=== PATIENT | female | born 1975 | race Caucasian/White ===

== ENCOUNTER → 2020-01-26 | Emergency (ER) | payer OTHER ==
[~2020-01-26] VITALS: Ht 175.3 cm; Wt 120.2 kg
[~2020-01-26] MED LIST: NORCO 7.5-3251 EACH PO; ONDANSETRON ODT8 MG PO
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
== END ==
LOC: ED 14:54
DX: R10.31 Right lower quadrant pain (principal); F17.200 Nicotine dependence, unspecified, uncomplicated; Z88.6 Allergy status to analgesic agent; Z88.8 Allergy status to other drugs, medicaments and biological substances
CPT/HCPCS: 74177; 76830; 76856; 80053; 81001; 83690; 84703; 85025; 96375; 96376; 99284-25; A9270; J1170; J2405; J7030; Q9967

== ENCOUNTER 2020-11-23 09:08 | Emergency (ER) | payer OTHER ==
[~2020-11-23] VITALS: Ht 175.3 cm; Wt 120.2 kg
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
[2020-11-23] MEDS ORDERED: GABAPENTIN300 MG PO (09:24)
[2020-11-23] MEDS ORDERED: GABAPENTIN100 MG PO (09:24)
[2020-11-23] MEDS ORDERED: CYCLOBENZAPRINE10 MG PO (09:25)
[2020-11-23] MEDS ORDERED: ONDANSETRON ODT8 MG PO (11:34)
[2020-11-23] MEDS ORDERED: DICYCLOMINE HCL20 MG PO (11:35)
== END 2020-11-23 11:51 | disposition home or self-care (01) ==
LOC: ED 09:08
DX: K52.9 Noninfective gastroenteritis and colitis, unspecified (principal); F17.200 Nicotine dependence, unspecified, uncomplicated; Z88.8 Allergy status to other drugs, medicaments and biological substances; Z88.6 Allergy status to analgesic agent; Z79.899 Other long term (current) drug therapy
CPT/HCPCS: 80053; 81001; 83690; 85025; 96374; 96375; 99284-25; J2405; J7030

== ENCOUNTER 2021-09-26 07:25 | Emergency (ER) | payer OTHER ==
[~2021-09-26] VITALS: Ht 175.3 cm; Wt 120.2 kg
[~2021-09-26 07:25] MED LIST changes: +CYCLOBENZAPRINE10 MG PO; +DICYCLOMINE HCL20 MG PO; +GABAPENTIN100 MG PO; +GABAPENTIN300 MG PO
--- OUTSIDE RECORDS SUMMARY | 2021-09-26 07:28 | XMS ---
PreManage Notification: FLIP COPELAND Security Brand Leader Events No recent Security Events currently on file CRITERIA MET - [facility] CARE PROVIDERS RADHA JOVANI Community Health Worker 02/13/2021-Current PHONE: [phone] FARHEEN RAMOS Physician Branch Manager Current PHONE: Unknown Vikram has no Care Guidelines for this patient. Care History Medical/Surgical 11/24/2020 [facility] Care Recommendation: - PLEASE REVIEW PDMP - VIKRAM - USE EXTREME CAUTION IN GIVING NARCOTICS. - Avoid Discharge Narcotic prescriptions if at all possible. Physician discretion. E.D. VISIT COUNT (12 MO.) [facility] TOTAL 7 NOTE: Visits indicate total known visits. ED/UCC VISIT TRACKING (12 MO.) 09/26/2021 07:26 [facility] Opal Willis [place] TYPE: Emergency COMPLAINT: - SOB, HEADACHE, COUGH, SORE THROAT 06/17/2021 08:15 [facility] OR TYPE: Emergency DIAGNOSES: - BACK PAIN - Low back pain, unspecified 05/06/2021 10:56 [facility] OR TYPE: Emergency DIAGNOSES: - Trochanteric bursitis, right hip - R HIP PAIN 02/25/2021 10:23 [facility] OR TYPE: Emergency DIAGNOSES: - Hidradenitis suppurativa - ABCESS 02/12/2021 10:07 [facility] [place] TYPE: Emergency DIAGNOSES: - BACK PAIN - Lumbago with sciatica, right side 11/27/2020 09:39 [facility] [place] TYPE: Emergency DIAGNOSES: - Noninfective gastroenteritis and colitis, unspecified - COVID TESTING - Contact with and (suspected) exposure to covid-19 11/23/2020 09:[address] [facility] [place] TYPE: Emergency COMPLAINT: - ABD PAIN DIAGNOSES: - Nicotine dependence, unspecified, uncomplicated - Right upper quadrant pain - Allergy status to other drugs, medicaments and biological substances - Allergy status to analgesic agent - Noninfective gastroenteritis and colitis, unspecified - Other senior care (current) drug therapy INPATIENT VISIT TRACKING (12 MO.) No inpatient visits to display in this time frame [id number]
[2021-09-26] MEDS ORDERED: ACETAMINOPHEN500 MG PO (07:53)
== END 2021-09-26 09:10 | disposition home or self-care (01) ==
LOC: ED 07:25
DX: R05.9 Cough, unspecified (principal); B97.4 Respiratory syncytial virus as the cause of diseases classified elsewhere; Z20.822 Contact with and (suspected) exposure to COVID-19; R09.81 Nasal congestion; F17.200 Nicotine dependence, unspecified, uncomplicated; E03.9 Hypothyroidism, unspecified; Z88.6 Allergy status to analgesic agent; Z79.899 Other long term (current) drug therapy
CPT/HCPCS: 71045; 94640; 94664; 99283-25; C9803; U0003

== ENCOUNTER 2021-09-29 07:28 | Emergency (ER) | payer OTHER ==
[~2021-09-29] VITALS: Ht 175.3 cm; Wt 120.2 kg
[~2021-09-29 07:28] MED LIST changes: +ACETAMINOPHEN500 MG PO
--- OUTSIDE RECORDS SUMMARY | 2021-09-29 07:30 | XMS ---
PreManage Notification: FLIP COPELAND Security Waiter/Waitress Club Events No recent Security Events currently on file CRITERIA MET - [facility] - 2 Visits in 30 Days CARE PROVIDERS JOVANI GARCIA Community Health Worker 02/13/2021-Current PHONE: [phone] FARHEEN RAMOS Physician Paste Maker Current PHONE: Unknown Vikram has no Care Guidelines for this patient. Care History Medical/Surgical 11/24/2020 [facility] Care Recommendation: - PLEASE REVIEW JESSICA - VIKRAM - USE EXTREME CAUTION IN GIVING NARCOTICS. - Avoid Discharge Narcotic prescriptions if at all possible. Physician discretion. E.D. VISIT COUNT (12 MO.) [facility] 3 SHAHANA [place] 5 Opal TOTAL 8 NOTE: Visits indicate total known visits. ED/UCC VISIT TRACKING (12 MO.) 09/29/2021 07:28 [facility] [place] TYPE: Emergency COMPLAINT: - MULTIPLE COMPLAINTS 09/26/2021 07:26 [facility] [place] TYPE: Emergency COMPLAINT: - SOB, HEADACHE, COUGH, SORE THROAT DIAGNOSES: - Nicotine dependence, unspecified, uncomplicated - Nasal congestion - Other intermission coordinator (current) drug therapy - COUGH, UNSPECIFIED - Hypothyroidism, unspecified - Respiratory syncytial virus as the cause of diseases classified elsewhere - Allergy status to analgesic agent 06/17/2021 08:15 [facility] TYPE: Emergency DIAGNOSES: - BACK PAIN - Low back pain, unspecified 05/06/2021 10:56 [facility] [place] TYPE: Emergency DIAGNOSES: - Trochanteric bursitis, right hip - R HIP PAIN 02/25/2021 10:23 [facility] OR TYPE: Emergency DIAGNOSES: - Hidradenitis suppurativa - ABCESS 02/12/2021 10:07 [facility] TYPE: Emergency DIAGNOSES: - BACK PAIN - Lumbago with sciatica, right side 11/27/2020 09:39 [facility] OR TYPE: Emergency DIAGNOSES: - Noninfective gastroenteritis and colitis, unspecified - COVID TESTING - Contact with and (suspected) exposure to covid-19 11/23/2020 09:09 [facility] [place] TYPE: Emergency COMPLAINT: - ABD PAIN DIAGNOSES: - Nicotine dependence, unspecified, uncomplicated - Right upper quadrant pain - Allergy status to other drugs, medicaments and biological substances - Allergy status to analgesic agent - Noninfective gastroenteritis and colitis, unspecified - Other intermission coordinator (current) drug therapy INPATIENT VISIT TRACKING (12 MO.) No inpatient visits to display in this time frame [id number]
[2021-09-29] MEDS ORDERED: ONDANSETRON ODT8 MG PO (09:29)
[2021-09-29] MEDS ORDERED: PREDNISONE20 MG PO (09:29)
[2021-09-29] MEDS ORDERED: HYDROCODON-ACE1 EA11 PO (09:29)
[2021-09-29] MEDS ORDERED: VENTOLIN HFA18 GM INH (13:00)
--- NOTE | 2021-09-29 17:43 | EKG ---
[facility] [address] [facility] [place], [place] [address] Signed Normal sinus rhythm Low voltage QRS Cannot rule out Anterior infarct , age undetermined Abnormal ECG No previous ECGs available Confirmed by MIGUE MÁRQUEZ DO ([id number]) on 09/29/2021 5:42:44 PM Electronically Signed By: MIGUE MÁRQUEZ DO 09/29/21 1743 PATIENT NAME: FLIP COPELAND Electrocardiogram DATE OF : 77 PHYSICIAN: MIGUE MÁRQUEZ DO REPORT #: [id number] REPORT IS CONFIDENTIAL AND NOT TO BE RELEASED WITHOUT AUTHORIZATION
== END 2021-09-29 13:52 | disposition home or self-care (01) ==
LOC: ED 07:28
DX: J45.909 Unspecified asthma, uncomplicated (principal); E03.9 Hypothyroidism, unspecified; F17.200 Nicotine dependence, unspecified, uncomplicated; Z88.6 Allergy status to analgesic agent; Z79.899 Other long term (current) drug therapy
CPT/HCPCS: 36415; 71045; 83880; 84484; 85025; 93005; 93010; 94640; 99285-25; 99406; A9270; J7512

== ENCOUNTER 2022-06-16 10:52 | Emergency (ER) | payer OTHER ==
[~2022-06-16] VITALS: Ht 175.3 cm; Wt 122.5 kg
[~2022-06-16 10:52] MED LIST changes: +HYDROCODON-ACE1 EA11 PO; +PREDNISONE20 MG PO; +VENTOLIN HFA18 GM INH
[2022-06-16] MEDS ORDERED: ONDANSETRON ODT8 MG PO (15:55)
[2022-06-16] MEDS ORDERED: MECLIZINE HCL25 MG PO (15:55)
[2022-06-16] MEDS ORDERED: SYNTHROID75 MCG PO (15:55)
--- NOTE | 2022-06-17 10:57 | EKG ---
[facility] [address] [facility] [place], [place] [address] Signed Sinus bradycardia with 1st degree AV block Low voltage QRS Cannot rule out Anterior infarct (cited on or before 29-SEP-2021) Abnormal ECG When compared with ECG of 16-JUN-2022 12:13, (Unconfirmed) No significant change was found Confirmed by GARRETT MUNOZ MD ([id number]) on 06/17/2022 10:56:49 AM Electronically Signed By: GARRETT MUNOZ MD 06/17/22 1057 PATIENT NAME: FLIP COPELAND Electrocardiogram DATE OF : 77 PHYSICIAN: GARRETT MUNOZ MD REPORT #: [id number] REPORT IS CONFIDENTIAL AND NOT TO BE RELEASED WITHOUT AUTHORIZATION
== END 2022-06-16 16:30 | disposition home or self-care (01) ==
LOC: ED 10:52
DX: K21.9 Gastro-esophageal reflux disease without esophagitis (principal); H81.399 Other peripheral vertigo, unspecified ear; E03.9 Hypothyroidism, unspecified
CPT/HCPCS: 36415; 70450; 80053; 84443; 84484; 85025; 93005; 93010; 99284-25; A9270

== ENCOUNTER 2022-07-22 08:10 | Emergency (ER) | payer OTHER ==
[~2022-07-22] VITALS: Ht 175.3 cm; Wt 122.5 kg
[~2022-07-22 08:10] MED LIST changes: +MECLIZINE HCL25 MG PO; +SYNTHROID75 MCG PO
--- NOTE | 2022-07-22 15:03 | NUR ---
CONTACTED BY ANDREW LEE-PT NEEDS ASSISTANCE FOR [facility]. SUPPLIED MEANS FOR ARACELY ROQUE TO SIGN PT UP FOR [facility] MEMBERSHIP BEFORE BEING TRANSFERRED. RECEIVED COPY OF RECEIPT-EMAILED TO [facility] RECORDS.
--- NOTE | 2022-07-24 16:53 | CONS ---
[facility] [address] [place], [place] [address] Signed DATE OF CONSULTATION: 07/22/2022 REQUESTING PHYSICIAN: Dr. iWllis. ISSUE: Severe abdominal pain, abnormal appearing upper abdomen, possible hemorrhage. HISTORY OF PRESENT ILLNESS: This morbidly obese 47-year-old white woman lives in [place]. She was awakened suddenly at approximately 4:00 a.m. today with severe epigastric pain. She was evaluated by Dr. Willis including performance of a CT scan, which initially was thought possibly to represent acute pancreatitis, but the patient has no hyperamylasemia or hyperlipasemia. An extensive soft tissue density and fat stranding in the retroperitoneum and mesenteric root was noted. I was called by Dr. Willis while I was out of the hospital and I have reviewed the films. This appeared suggestive to me of possible visceral artery aneurysm rupture or other similar problem. The patient was hemodynamically stable and remained so. Her hematocrit performed initially was normal. Recommendation was made for additional IV access and typed and crossed for blood and further consideration of possible transfer for need for angiographic evaluation and possible embolization. I have since examined the patient and the CT scan. I have reviewed with the radiologist Dr. Barr at [facility] and the findings as well. There appeared to be a radiodense "blush" in the middle of the amorphous periduodenal area. The duodenum and stomach appeared normal. My own review of the three different views showed what appeared to me to be an intact superior mesenteric artery and celiac axis. No evidence of actual blush from major vessels there. The process appears to be in the region of the C-loop of the duodenum and posterior to the superior mesenteric artery and vein. There is no evidence of free air. The patient has no prior history of pancreatitis or biliary problems. She has undergone cholecystectomy in the distant past in [place], [place]. She has had two C sections as well. She does have morbid obesity. REVIEW OF SYSTEMS: She denies any shortness of breath or chest pain. She does have epigastric pain, which has somewhat abated since her presentation. Electronically Signed By: WILLIAM HSU MD 07/24/22 1656 PATIENT NAME: FLIP COPELAND CONSULTATION DATE OF : 77 REPORT #: [id number] PHYSICIAN: WILLIAM HSU MD PCP: FARHEEN RAMOS REPORT IS CONFIDENTIAL AND NOT TO BE RELEASED WITHOUT AUTHORIZATION [facility] [address] [place], [place] [address] Signed PHYSICAL EXAMINATION: GENERAL: Very obese white woman who is alert and oriented. No evidence of acute toxicity. VITAL SIGNS: Systolic blood pressure 95, pulse 81. NECK: Trachea is midline. HEENT: Mucous membranes are moist. Two IVs are being assured in their function at this time. CHEST: Normal respiratory excursion without tachypnea. ABDOMEN: Quite markedly obese. There is mild tenderness in epigastric area. She has no ascites. EXTREMITIES: Show no clubbing, cyanosis, or edema. ASSESSMENT AND PLAN: It appears that she has had hemorrhage of some sort. It is in the region of the retroperitoneum or at least in the retro superior mesenteric artery area. The superior mesenteric artery and vein appeared to be intact. I see no evidence of portal vein issue or small vessel disease otherwise. She has had no associated blunt trauma to the duodenum or pancreas in any way and has never had similar problems in the past. Dr. 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 For the patient to have instability operative intervention would be secondary consideration to include laparotomy, evacuation hematoma and security of the offending bleeding site. A special note, there appears to be no sign of renal or adrenal problem contributing to this (i.e. bleeding myelolipoma, etc.) Dr. Willis has confirmed an acceptance and transfer to for this relatively advanced approach to management. I believe the patient be safe for transfer based on clinical situation thus far and hemoglobin initially obtained of 13. If the patient should have acute decompensation, an immediate laparotomy would be indicated as a backup approach to allow for evacuation of hematoma and attempts that surgical control of any bleeding site. William Hsu MD Electronically Signed By: WILLIAM HSU MD 07/24/22 0895 PATIENT NAME: FLIP COPELAND CONSULTATION DATE OF : 77 REPORT #: [id number] PHYSICIAN: WILLIAM HSU MD PCP: FARHEEN RAMOS REPORT IS CONFIDENTIAL AND NOT TO BE RELEASED WITHOUT AUTHORIZATION [address] [address] Signed /[facility] /[id number] cc: WILLIAM WILLIS MD Copies: ~ Electronically Signed By: WILLIAM HSU MD 07/24/22 1653 PATIENT NAME: DINORAHFLIP ANALY CONSULTATION DATE OF : 77 REPORT #: [id number] PHYSICIAN: WILLIAM HSU MD PCP: FARHEEN RAMOS REPORT IS CONFIDENTIAL AND NOT TO BE RELEASED WITHOUT AUTHORIZATION
== END 2022-07-22 13:31 | disposition short-term general hospital (02) ==
LOC: ED 08:10
DX: K86.89 Other specified diseases of pancreas (principal); R58 Hemorrhage, not elsewhere classified; E03.9 Hypothyroidism, unspecified; F17.200 Nicotine dependence, unspecified, uncomplicated; Z20.822 Contact with and (suspected) exposure to COVID-19; Z88.6 Allergy status to analgesic agent; Z88.8 Allergy status to other drugs, medicaments and biological substances; Z79.899 Other long term (current) drug therapy
CPT/HCPCS: 36415; 74177; 80053; 81001; 83690; 84703; 85025; 85610; 85730; 86850; 86900; 86901; 86922; 87502; 96374; 96375; 99285-25; J1170; J1790; J2405; J7030; Q9967; U0003

== ENCOUNTER 2023-07-25 09:39 | Emergency (ER) | payer SELFPAY ==
[~2023-07-25] VITALS: Ht 175.3 cm; Wt 118.8 kg
[~2023-07-25 09:39] MED LIST changes: +HYDROCODON-ACE1 EA10 PO; +LEVOTHYROXINE200 MCG; +METHOCARBAMOL500 MG PO
[2023-07-25] MEDS ORDERED: HYDROCODON-ACE1 EA11 PO (09:55)
[2023-07-25 10:50] VITALS: BP 108/55
== END 2023-07-25 10:50 | disposition home or self-care (01) ==
LOC: ED 09:39
DX: L02.411 Cutaneous abscess of right axilla (principal); E03.9 Hypothyroidism, unspecified; F17.200 Nicotine dependence, unspecified, uncomplicated; Z79.890 Hormone replacement therapy; Z88.6 Allergy status to analgesic agent
CPT/HCPCS: 10060; 99283-25

== ENCOUNTER 2024-05-28 10:06 | Emergency (ER) | payer SELFPAY ==
[~2024-05-28] VITALS: Ht 175.3 cm; Wt 128.2 kg
[2024-05-28] MEDS ORDERED: DICLOFENAC 1% TOPICAL GEL TOP ONE (10:30)
[2024-05-28] MEDS ORDERED: CYCLOBENZAPRINE10 MG PO (10:32)
[2024-05-28] MEDS ORDERED: LIDODERM1 EACH TOP (10:32)
[2024-05-28 10:44] VITALS: BP 129/87
== END 2024-05-28 10:48 | disposition home or self-care (01) ==
LOC: ED 10:06
DX: M79.671 Pain in right foot (principal); E03.9 Hypothyroidism, unspecified; N18.9 Chronic kidney disease, unspecified; F17.200 Nicotine dependence, unspecified, uncomplicated; Z88.6 Allergy status to analgesic agent; Z79.890 Hormone replacement therapy; Z79.899 Other long term (current) drug therapy
CPT/HCPCS: 99283

== ENCOUNTER 2025-06-30 12:03 | Emergency (ER) | payer OTHER ==
[~2025-06-30] VITALS: Ht 175.3 cm; Wt 131.8 kg
[~2025-06-30 12:03] MED LIST changes: +LIDODERM1 EACH TOP
[2025-06-30] MEDS ORDERED: GABAPENTIN100 MG PO (12:19)
[2025-06-30] MEDS ORDERED: LEVOTHYROXINE100 MCG PO (12:19)
[2025-06-30] MEDS ORDERED: HYDROCODONE/APAP 10/325 1 TAB PO ONE (13:00)
[2025-06-30 13:04] VITALS: BP 129/71
[2025-06-30] MEDS ORDERED: HYDROCODONE BIT/ACETAMINOPHEN 5/325 MG 1 TAB HOME.PACK PO ONE (13:15)
== END 2025-06-30 13:31 | disposition home or self-care (01) ==
LOC: ED 12:03
DX: S93.401A Sprain of unspecified ligament of right ankle, initial encounter (principal); S93.601A Unspecified sprain of right foot, initial encounter; E03.9 Hypothyroidism, unspecified; F17.200 Nicotine dependence, unspecified, uncomplicated; W01.0XXA Fall on same level from slipping, tripping and stumbling without subsequent striking against object, initial encounter; Z79.899 Other long term (current) drug therapy; Z88.5 Allergy status to narcotic agent; Z88.6 Allergy status to analgesic agent
CPT/HCPCS: 73630; 99283; A9270